=== PATIENT | male | born 1975 | race Caucasian/White ===

== ENCOUNTER 2025-01-09 06:25 | Day surgery (SDC) | payer OTHER, SELFPAY | END 2025-01-09 09:18 | disposition home or self-care (01) | LOC: GI 06:25 | PROVIDERS: ATTENDING PHYSICIAN Internal Medicine | DX: Z12.11 Encounter for screening for malignant neoplasm of colon (principal); D12.3 Benign neoplasm of transverse colon | CPT/HCPCS: 45385; 88305 ==